=== PATIENT | female | born 1980 | race Caucasian/White ===

== ENCOUNTER 2018-03-29 20:41 | Observation (INO) | payer BC ==
[~2018-03-29] VITALS: Ht 154.9 cm; Wt 61.9 kg
[2018-03-29 20:41] VITALS: BP 120/74; PULSE 96; RESP 20; TEMP 99.1; O2SAT 100
[~2018-03-29 20:41] MED LIST: ACETAMINOPHEN 325 MG TAB PO PRN; BISACODYL 10 MG SUPP RECTAL PRN; LACTULOSE SYRUP 20 GM/30 ML CUP PO PRN; MAGNESIUM HYDROXIDE SUSP 30 ML CUP PO PRN; NALOXONE HCL 0.4 MG/ML AMP IV PUSH PRN; ONDANSETRON HCL 4 MG/2 ML VIAL IVP PRN; PROCHLORPERAZINE 25 MG SUPP RECTAL PRN; SENNOSIDES 8.6 MG TAB PO PRN; SODIUM CHLORIDE 0.9% FLUSH 10 ML FLUSH IV FLUSH PRN; TEMAZEPAM 15 MG CAP PO PRN
[2018-03-29] MEDS: SODIUM CHLORIDE 0.9% FLUSH 10 ML FLUSH IV FLUSH SCH (21:20)
[2018-03-29] MEDS: SODIUM CHLOR 0.9% 1000 ML INJ 1,000 ML IV SCH (21:20)
[2018-03-29] MEDS: METOCLOPRAMIDE HCL 10 MG/2 ML VIAL IV PUSH PRN (21:22)
[2018-03-30] VITALS: BP 127/61; PULSE 79; RESP 16; TEMP 99.6; O2SAT 100
[2018-03-30] MEDS: SODIUM CHLOR 0.9% 1000 ML INJ 1,000 ML IV SCH ×3 (04:25→18:21)
[2018-03-30] MEDS: METOCLOPRAMIDE HCL 10 MG/2 ML VIAL IV PUSH PRN (06:09)
[2018-03-30] MEDS ORDERED: PROMETHAZINE INJ 25 MG/ML VIAL IM ONE (07:30)
[2018-03-30 08:00] VITALS: BP 144/88; PULSE 64; RESP 16; TEMP 98.9; O2SAT 97
[2018-03-30] MEDS: SODIUM CHLORIDE 0.9% FLUSH 10 ML FLUSH IV FLUSH SCH ×2 (08:17→20:46)
--- NOTE | 2018-03-30 09:47 | HHI.HP ---
HPI Service [facility] Hospitalists Primary Care Physician Unknown Admission Diagnosis Diagnoses: Chief Complaint: Intractable nausea and vomiting. Travel History International Travel<30 Days: No Contact w/Intl Traveler <30 Da: No Traveled to Known Affected Are: No History of Present Illness Ms. Berman is a pleasant 37-year-old female with a long history of endometriosis who presented to [facility] ER for an evaluation of nausea and vomiting that has been going on for 3 days prior to this admission. Patient had an urgent surgery for endometriosis on 03/27/2018. After surgery she has not been taking any opioid pain medications. 3 days prior to this admission, patient started having mild abdominal pain as well as intractable nausea and vomiting. Patient reports that she has been on multiple opioids prior to her endometriosis surgery. She does not like to take pain medications and thus she stopped her opioid pain medications. She denies any chest pain, shortness of breath, fever or chills. Denies any changes in bowel or bladder habits. Review of Systems Except as stated in HPI: all other systems reviewed are Neg Past Family Social History Past Medical History Endometriosis Past Surgical History Surgeries for endometriosis Reported Medications Patient has been on opioid pain medications. Other than that she does not take any other medications. Allergies: Coded Allergies: No Known Allergies (Unverified , 03/29/18) Family History No family history of heart disease or cancer. Social History Patient quit smoking about 4 months ago. She drinks alcohol occasionally. Physical Exam Vital Signs Vital Signs Date Time Temp Pulse Resp B/P (MAP) Pulse Ox O2 Delivery O2 Flow Rate FiO2 03/30/18 00:00 99.6 79 16 127/61 (83) 100 03/29/18 20:41 99.1 96 20 120/74 (89) 100 Physical Exam GENERAL: This is a well-nourished, well-developed patient, in no apparent distress. SKIN: No rashes, ecchymoses or lesions. Warm and dry. HEAD: Atraumatic. Normocephalic. No temporal or scalp tenderness. EYES: Pupils equal round and reactive. No injection or drainage. ENT: Nose without bleeding, purulent drainage or septal hematoma. Airway patent. NECK: Trachea midline. No lymphadenopathy. Supple, nontender, no meningeal signs. CARDIOVASCULAR: Regular rate and rhythm without murmurs, gallops, or rubs. No JVD. RESPIRATORY: Clear to auscultation. Breath sounds equal bilaterally. No wheezes , rales, or rhonchi. GASTROINTESTINAL: Abdomen soft, non-tender, nondistended. No guarding. MUSCULOSKELETAL: Extremities without clubbing, cyanosis, or edema. NEUROLOGICAL: Awake and alert. Cranial nerves II through XII intact. No focal neurological deficits. Normal speech. Imaging CT abdomen pelvis done on 03/29/2018 in [place] CONCLUSION: No acute abnormality is seen. Caprini VTE Risk Assessment Caprini VTE Risk Assessment: No/Low Risk (score <= 1) Caprini Risk Assessment Model Point Value = 1 Point Value = 2 Point Value = 3 Point Value = 5 Age 41-60 Minor surgery BMI > 25 kg/m2 Swollen legs Varicose veins or History of unexplained or recurrent spontaneous Oral contraceptives or hormone replacement Sepsis (< 1 month) Serious lung disease, including pneumonia (< 1 month) Abnormal pulmonary function Acute myocardial infarction Congestive heart failure (< 1 month) History of inflammatory bowel disease Medical patient at bed rest Age 61-74 Arthroscopic surgery Major open surgery (> 45 min) Laparoscopic surgery (> 45 min) Malignancy Confined to bed (> 72 hours) Immobilizing plaster cast Central venous access Age >= 75 History of VTE Family history of VTE Factor V Leiden Prothrombin [id number] Lupus anticoagulant Anticardiolipin antibodies Elevated serum homocysteine Heparin-induced thrombocytopenia Other congenital or acquired thrombophilia Stroke (< 1 month) Elective arthroplasty Hip, pelvis, or leg fracture Acute spinal cord injury (< 1 month) Prophylaxis Regimen Total Risk Factor Score Risk Level Prophylaxis Regimen 0-1 Low Early ambulation 2 Moderate Order ONE of the following: *Sequential Compression Device (SCD) *Heparin 5000 units SQ BID 3-4 Higher Order ONE of the following medications: *Heparin 5000 units SQ TID *Enoxaparin/Lovenox 40 mg SQ daily (WT < 150 kg, CrCl > 30 mL/min) *Enoxaparin/Lovenox 30 mg SQ daily (WT < 150 kg, CrCl > 10-29 mL/min) *Enoxaparin/Lovenox 30 mg SQ BID (WT < 150 kg, CrCl > 30 mL/min) AND/OR *Sequential Compression Device (SCD) 5 or more Highest Order ONE of the following medications: *Heparin 5000 units SQ TID (Preferred with Epidurals) *Enoxaparin/Lovenox 40 mg SQ daily (WT < 150 kg, CrCl > 30 mL/min) *Enoxaparin/Lovenox 30 mg SQ daily (WT < 150 kg, CrCl > 10-29 mL/min) *Enoxaparin/Lovenox 30 mg SQ BID (WT < 150 kg, CrCl > 30 mL/min) AND *Sequential Compression Device (SCD) Assessment and Plan Problem List: (1) Opioid withdrawal ICD Code: F11.23 - Opioid dependence with withdrawal (2) Endometriosis ICD Code: N80.9 - Endometriosis, unspecified Assessment and Plan Ms. Berman is a pleasant 37-year-old female with a history of chronic endometriosis with multiple surgical interventions who presented to the emergency department in [place] on 03/29/2018 due to intractable nausea and vomiting after she stopped taking opioids. Opioid withdrawal -Patient was on 3 different opioid medications prior to her surgery. -After surgery on 03/27/2018 she decided to not take opioid medications. -Despite giving her multiple nausea medications, she continues to be symptomatic. -We will give her methadone p.o. 20 mg. Methadone 10mg IM would be preferable but not available in [facility]. -We will also give Benadryl 25 mg every 6 hours for intractable nausea vomiting and opiate withdrawal. Chronic endometriosis -Status post surgical intervention on 03/27/[address] [facility] in [place]. Full code. Ambulation. Lisa Brown DO Mar 30, 2018 09:46
[2018-03-30] MEDS ORDERED: PROMETHAZINE INJ 25 MG/ML VIAL IM PRN (11:00)
[2018-03-30 12:00] VITALS: BP 130/80; PULSE 66; RESP 16; TEMP 98.9; O2SAT 97
[2018-03-30] MEDS ORDERED: diphenhydrAMINE HCL 50 MG/ML VIAL IV PUSH PRN (13:00)
[2018-03-30] MEDS ORDERED: METHADONE 10 MG/ML VIAL IM ONE (13:00)
[2018-03-30] MEDS ORDERED: METHADONE HCL 10 MG/10 ML ORAL SOLUTION PO ONE (14:00)
[2018-03-30 16:00] VITALS: BP 111/56; PULSE 85; RESP 18; TEMP 98.8; O2SAT 97
[2018-03-30 20:00] VITALS: BP 85/50; PULSE 92; RESP 20; TEMP 98.3; O2SAT 98
[2018-03-30 23:19] VITALS: BP 84/48; PULSE 80; RESP 18; TEMP 97.6; O2SAT 99
[2018-03-31] VITALS: BP 84/48; PULSE 80; RESP 18; TEMP 97.6; O2SAT 99
[2018-03-31] MEDS: SODIUM CHLOR 0.9% 1000 ML INJ 1,000 ML IV SCH ×2 (00:05→12:49)
[2018-03-31 04:00] VITALS: BP 84/47; PULSE 71
[2018-03-31 06:15] LABS: AUTOMATED NEUTROPHIL # 4.9 TH/MM3 (1.8-7.7); BASOPHIL # 0.1 TH/MM3 (0-0.2); BASOPHIL % 0.7 % (0.0-2.0); EOSINOPHIL # 0.1 TH/MM3 (0-0.4); EOSINOPHIL % 1.1 % (0.0-4.0); HEMOGLOBIN 11.4 GM/DL (11.6-15.3); LYMPHOCYTE # 2.2 TH/MM3 (1.0-4.8); MEAN CELL VOLUME 90.8 FL (80.0-100.0); MEAN CORPUSCULAR HEMOGLOBIN 29.7 PG (27.0-34.0); MEAN CORPUSCULAR HGB CONC 32.7 % (32.0-36.0); MEAN PLATELET VOLUME 7.3 FL (7.0-11.0); MONO % 8.8 % (0.0-8.0); MONOCYTE # 0.7 TH/MM3 (0-0.9); NEUT % 61.4 % (16.0-70.0); PLATELET COUNT 223 TH/MM3 (150-450); RED BLOOD COUNT 3.85 MIL/MM3 (4.00-5.30); RED CELL DISTRIBUTION WIDTH 11.8 % (11.6-17.2)
[2018-03-31 06:21] LABS: BICARBONATE 24.4 MEQ/L (21.0-32.0); CALCIUM 7.9 MG/DL (8.5-10.1)
[2018-03-31 06:25] LABS: CREATININE 0.52 MG/DL (0.50-1.00)
[2018-03-31 06:27] VITALS: BP 98/56
[2018-03-31 08:00] VITALS: BP 94/58; PULSE 65; RESP 16; TEMP 98.1; O2SAT 97
[2018-03-31] MEDS: SODIUM CHLORIDE 0.9% FLUSH 10 ML FLUSH IV FLUSH SCH (08:44)
--- NOTE | 2018-03-31 09:50 | HHI.PR ---
Subjective Remarks Follow-up for intractable nausea vomiting, likely due to opioid withdrawal, recent endometriosis surgery. Patient is currently doing well. She reports significant improvement. No nausea or vomiting. Tolerating diet well. Objective Vitals Vital Signs Date Time Temp Pulse Resp B/P (MAP) Pulse Ox O2 Delivery O2 Flow Rate FiO2 03/31/18 06:27 98/56 (70) 03/31/18 04:00 71 84/47 (59) 03/31/18 00:00 97.6 80 18 84/48 (60) 99 03/30/18 23:19 97.6 80 18 84/48 (60) 99 03/30/18 20:00 98.3 92 20 85/50 (62) 98 03/30/18 16:00 98.8 85 18 111/56 (74) 97 03/30/18 12:00 98.9 66 16 130/80 (97) 97 I/O 03/30/18 03/30/18 03/30/18 03/31/18 03/31/18 03/31/18 07:00 15:00 23:00 07:00 15:00 23:00 Intake Total 1640 ml 1000 ml 1000 ml 240 ml Output Total 3 ml Balance 1640 ml 1000 ml 997 ml 240 ml Intake Oral 640 ml 240 ml IV Total 1000 ml 1000 ml 1000 ml Output Urine Total 3 ml # Voids 3 2 # Bowel Movements 1 0 Result Diagram: 03/31/18 0555 03/31/18 0555 Objective Remarks GENERAL: Alert, Oriented x 3, NAD. SKIN: Warm and dry. HEAD: Normocephalic. EYES: No scleral icterus. No injection or drainage. NECK: Supple, trachea midline. No JVD or lymphadenopathy. CARDIOVASCULAR: Regular rate and rhythm without murmurs, gallops, or rubs. RESPIRATORY: Breath sounds equal bilaterally. No accessory muscle use. GASTROINTESTINAL: Abdomen soft, non-tender, nondistended. MUSCULOSKELETAL: No cyanosis, or edema. BACK: Nontender without obvious deformity. No CVA tenderness. Procedures None A/P Problem List: (1) Opioid withdrawal ICD Code: F11.23 - Opioid dependence with withdrawal (2) Endometriosis ICD Code: N80.9 - Endometriosis, unspecified Assessment and Plan Ms. Berman is a pleasant 37-year-old female with a history of chronic endometriosis with multiple surgical interventions who presented to the emergency department in [place] on 03/29/2018 due to intractable nausea and vomiting after she stopped taking opioids. Opioid withdrawal -Patient was on 3 different opioid medications prior to her surgery. -After surgery on 03/27/2018 she decided to not take opioid medications. -We provided supportive care including one dose of Methadone 20mg PO. Patient gradually improved and tolerated diet well. Chronic endometriosis -Status post surgical intervention on 03/27/2018 at [facility] in [place]. Full code. Ambulation. Patient is doing well. Tolerating diet well. Will d/c her home. Discharge patient to home Condition on discharge: Improved Regular Diet as tolerated Ad Ernestina activity Rx written: Bhargav BALDERAS Follow-up with primary care physician within one week. Lisa Brown DO Mar 31, 2018 09:50
[2018-03-31 12:00] VITALS: BP 103/86; PULSE 88; RESP 16; TEMP 98.4; O2SAT 99
[2018-03-31] MEDS ORDERED: ZOFR4TAB3 SL (12:55)
== END 2018-03-31 17:13 | disposition home or self-care (01) ==
LOC: PHEDDLT 20:41 → PH3B 20:42
PROVIDERS: ADMIT Hospitalist; ATTEND Hospitalist
DX: F11.23 Opioid dependence with withdrawal (principal); R11.2 Nausea with vomiting, unspecified; N80.9 Endometriosis, unspecified; Z87.891 Personal history of nicotine dependence
CPT/HCPCS: 74177; 80048; 80053; 81001; 83690; 85025; 87086; 96361; 96372; 96374; 96375; 96376; 99285; C9113; G0378; J0780; J1200; J2060; J2270; J2310; J2550; J2765; J7030; Q9967